=== PATIENT | male | born 1985 | race Two or more races ===

== ENCOUNTER 2024-08-29 20:56 | Emergency (ER) | payer MEDICAID, SELFPAY ==
[2024-08-29 20:57] VITALS: BMI 30.5
--- NOTE | 2024-08-29 21:00 | EKG_ITS ---
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
[2024-08-29 21:11] VITALS: BP 149/96; PULSE 103; RESP 18; TEMP 36.8; O2SAT 96
--- NOTE | 2024-08-29 21:32 | XR_ITS ---
Examination: PA chest single view Technique: Upright PA chest single view Exam date and time: August 29, 2024 1009 hrs. Comparison September 27, 2023 Indications: Chest pain SOB today Findings: No significant cardiac enlargement Suspicious for early pneumonia left base, the appearance should be clinically correlated Intact osseous structures Impression: Suspicious for early pneumonia left base
[2024-08-29] MEDS: DIAZEPAM 5 MG TABLET 10 MG PO (22:33)
[2024-08-29 22:38] LABS: Basophils % (Auto) 0 % (0-2.5); Eosinophils % (Auto) 0 % (0-10); Hematocrit 43.7 % (41.0-53.0); Hemoglobin 14.8 g/dL (13.5-16.0); Immature Granulocytes % (Auto) 0 % (0-0); Immature Granulocytes Auto 0.04 Thou/mm3 (0.00-0.00); Lymphocytes # (Auto) 1.5 Thou/mm3 (1.0-4.8); Lymphocytes % (Auto) 11 % (10-50); Mean Corpuscular HGB Conc 33.9 g/dl (31.0-37.0); Mean Corpuscular Volume 80 fL (80-100); Monocytes # (Auto) 0.8 Thou/mm3 (0.0-0.8); Monocytes % (Auto) 6 % (0-12); Neutrophils # (Auto) 11.3 Thou/mm3 (1.8-7.7); Neutrophils % (Auto) 83 % (37-80); Nucleated Red Blood Cell % 0 /100 WBC (0); Platelet Count 230 Thou/mm3 (140-440); RDW Standard Deviation 38.6 fL (35.1-43.9); Red Blood Count 5.48 Miln/mm3 (4.50-5.90); White Blood Count 13.7 Thou/mm3 (3.8-10.6)
[2024-08-29 23:00] LABS: Alanine Aminotransferase 77 U/L (10-49); Albumin, Serum 4.4 gm/dL (3.5-5.0); Anion Gap 9 (7-16); Aspartate Amino Transferase 35 U/L (0-34); BUN/Creatinine Ratio 12 Ratio (12-20); Blood Urea Nitrogen 12 mg/dL (9-23); Calcium 9.2 mg/dL (8.3-10.6); Calcium (Corrected) 9.2 mg/dL (8.5-10.1); Carbon Dioxide 26.1 mMol/L (20.0-31.0); Chloride 105 mMol/L (98-107); Estimated Creatinine Clearance 106.3 mL/min (>60); Glucose 116 mg/dL (74-106); Osmolality,Calculated 280 (275-295); Potassium 3.2 mMol/L (3.4-5.1); Sodium 140 mMol/L (136-145); Total Protein 7.1 gm/dL (5.7-8.2); Troponin I < 0.020 ng/mL (0.0-0.045); eGFR > 60 See Note
[2024-08-29 23:01] LABS: Albumin/Globulin Ratio 1.6 (1.2-2.2); Alkaline Phosphatase 106 U/L (46-116); Globulin 2.7 gm/dL (2.3-3.5)
[2024-08-30] MEDS: POTASSIUM CHLORIDE 20 mEq TABCR 40 MEQ PO (00:09)
[2024-08-30 00:45] LABS: D-Dimer < 250 ng/mL (<600)
[2024-08-30 00:54] LABS: Troponin I < 0.020 ng/mL (0.0-0.045)
[2024-08-30 01:18] VITALS: BP 116/76; PULSE 82; RESP 16; TEMP 36.7; O2SAT 96
--- NOTE | 2024-08-30 04:01 | EDNOTE_ITS ---
ED Chest Pain RME/HPI General Chief Complaint: Chest Pain Stated Complaint: CHEST PAIN, BLURRY VISION, FEELS ANXIOUS Time Seen by Provider: 08/29/24 21:31 Arrival date/time: 08/29/24 20:56 38M with history of anxiety, drug use and HTN presents to ED with several days of cough and SOB. Limitations: no limitations Related Data Home Medications ?Medication ?Instructions ?Recorded ?Confirmed hydrochlorothiazide 50 mg tablet 50 mg PO QAM 03/28/23 10/01/23 Previous Rx's ?Medication ?Instructions ?Recorded albuterol sulfate 90 mcg/actuation 1 inh inhalation QI D PRN shortness 10/01/23 breath activated powder inhaler of breath or wheezing #1 ea losartan 25 mg tablet 25 mg PO QDAY 30 days #30 ta bs 10/01/23 vitamin B complex-vitamin C-folic 1 tab PO QDAY 30 day s #30 tabs 10/01/23 acid 0.8 mg tablet (Nephro-Donato) amoxicillin 875 mg tablet 875 mg PO TID 5 days #15 tab s 08/30/24 azithromycin 250 mg tablet See Rx Instructions PO .COM PLEX #6 08/30/24 tabs Allergies Allergy/AdvReac Type Severity Reaction Status Date / Time No Known Allergies Allergy Verified 03/28/23 10:44 Review of Systems Review of Systems Systems Reviewed: All systems reviewed, normal except as documented Constitutional Constitutional: Reports system reviewed and no additional complaints, except as documented, Denies fever(s) and Denies headache(s) ENT Ears, Nose, Mouth, and Throat: Denies disequilibrium and Denies headache(s) Cardiovascular Cardiovascular: Reports system reviewed and no additional complaints, except as documented, Denies chest pain and Reports dyspnea Respiratory Respiratory: Reports system reviewed and no additional complaints, except as documented, Reports as per HPI, Reports cough and Reports dyspnea Gastrointestinal Gastrointestinal: Reports system reviewed and no additional complaints, except as documented, Denies abdominal pain, Denies nausea and Denies vomiting Neurologic Neurologic: Reports system reviewed and no additional complaints, except as documented, Denies confusion, Denies disequilibrium and Denies headache(s) Psychiatric Psychiatric: Reports as per HPI, Reports anxiety and Denies confusion Past Medical History Past Medical History NEUROLOGIC: Negative Seizures CARDIAC: Positive Cardiac Disorders and Hypertension; Negative Congestive Heart Failure RESPIRATORY: Negative Chronic Obstructive Pulmonary Disease (COPD) or Asthma GENITOURINARY: Negative Renal Disease ENDOCRINE: Negative Diabetes Mellitus Type 1 or Diabetes Mellitus Type 2 HEMATOLOGIC: Negative Sickle Cell Disease OTHER HISTORY: Negative Blood Transfusions or Anesthesia Reactions Social History SMOKING STATUS: Never smoker SUBSTANCE USE: does not use ED Exam General Limitations: Present no limitations General appearance: Present alert, in no apparent distress and anxious Head Head exam: Present atraumatic Eye Eye exam: Present normal appearance, PERRL and EOMI ENT ENT exam: Present normal exam, normal oropharynx and mucous membranes moist Neck Neck exam: Present normal inspection, full ROM and trachea midline Chest Chest inspection: Present normal inspection and symmetric chest wall rise Respiratory Respiratory exam: Present normal lung sounds bilaterally Cardiovascular Cardiovascular exam: Present regular rate, normal rhythm and normal heart sounds Abdominal Exam Abdominal exam: Present soft and normal bowel sounds Extremities Exam Extremities exam: Present normal inspection and full ROM Back Exam Back exam: Present normal inspection and full ROM Neurological Exam Neurological exam: Present alert, oriented X3 and CN II-XII intact Psychiatric Psychiatric exam: Present normal affect and normal mood Skin Skin exam: Present warm, dry, intact and normal color Course Quality Measures none Orders Category Date Time Status EKG (ED ONLY) *Do not use* NOW Care 08/29/24 21:01 Completed EKG (ED Only) Stat Exams 08/29/24 21:00 Draft XR chest 1V portable Stat Exams 08/29/24 21:32 Completed CBC Stat Lab 08/29/24 22:26 Completed Comprehensive Metabolic Panel Stat Lab 08/29/24 22:26 Completed D-Dimer Stat Lab 08/29/24 23:58 Completed Troponin I Stat Lab 08/29/24 22:26 Completed Troponin I Stat Lab 08/29/24 23:58 Completed Diazepam [Valium] Med 08/29/24 21:32 Discontinued 10 mg PO X1 ONE Potassium Chloride [K-Dur] Med 08/29/24 23:58 Discontinued 40 meq PO X1 ONE Vital Signs Vital signs: Vital Signs Temperature 98.3 F 08/29/24 21:11 Pulse Rate 103 H 08/29/24 21:11 Respiratory Rate 18 08/29/24 21:11 Blood Pressure 149/96 H 08/29/24 21:11 Pulse Oximetry (%) 96 08/29/24 21:11 Oxygen Delivery Method Room Air 08/29/24 21:11 O2 at 96% on RA and WNLs Chest Pain MDM Narrative MDM Narrative:: 38M with history of anxiety, drug use and HTN presents to ED with several days of cough and SOB. Physical exam reveals clear lungs. RRR. Normal WOB. Patient is afebrile, alert, but anxious. EKG shows sinus tach of 109. Mild leukocytosis. K mildly low, repleted. Trop 2x normal. D-dimer normal. CXR shows some PNA. Patient data External records reviewed:: [facility] previous records Clinical information provided by:: patient Social determinants that could affect healthcare access:: mental health Patient has the following chronic illnesses:: anxiety, drug use and HTN How is presenting disease/condition affected by chronic disease/condition?: exacerbated by Evaluation data The following diagnostics were reviewed and interpreted by me:: lab results, radiology exam(s) and EKG tracing(s) Lab and/or radiology exams considered but not ordered:: ordered Interpretation Summary: above Medications / Prescriptions Medications or Prescriptions considered but not ordered:: ordered Medication administrations:: Medication Administration History Discontinued Medications Diazepam (Diazepam 5 Mg Tablet) 10 mg PO X1 ONE Stop: 08/29/24 21:33 Last Admin: 08/29/24 22:33 Dose: 10 mg Documented By: Potassium Chloride (Potassium Chloride 20 Meq Tabcr) 40 meq PO X1 ONE Stop: 08/29/24 23:59 Last Admin: 08/30/24 00:09 Dose: 40 meq Documented By: MS valeriano Consultations Consultation(s) initiated? (list below): No Diagnosis Chest Pain Differential Diagnosis: fracture of rib, pneumothorax, stable angina, unstable angina pectoris, atypical chest pain, st elevation myocardial infarction, costochondritis, chest pain, biliary colic and other (CAP) Most likely diagnosis given after review of the tests above:: CAP Admission Indicated Admission indicated?: not indicated Admission Request Was there a request for admission?: No Disposition Plan Disposition Plan: Discharge Discharge Attestation Discharge Attestation: The patient and all family members were given an opportunity to ask questions and understood the discharge instructions. Discharge instructions specifically effects, indications for sooner follow up or return to the emergency department, and the expected course of current diagnosis. Patient condition: Stable Discharge Plan Plan Patient Disposition: HOME (Self Care) Disposition Comment: Stable Prescriptions/Referrals Prescriptions/Med Rec: New amoxicillin 875 mg tablet 875 mg PO TID 5 Days Qty: 15 0RF azithromycin 250 mg tablet See Rx Instructions .ROUTE .COMPLEX Qty: 6 0RF Rx Instructions: For 250 mg dose pack: take 500 mg today (day 1), then 250 mg for 4 days (days 2-5) No Action hydrochlorothiazide 50 mg Tablet 50 mg PO QAM losartan 25 mg Tablet 25 mg PO QDAY 30 Days Qty: 30 6RF Nephro-Donato 0.8 mg Tablet 1 tab PO QDAY 30 Days Qty: 30 6RF albuterol sulfate 90 mcg/actuation aerosol powdr breath activated 1 inh inhalation QID PRN (Reason: shortness of breath or wheezing) Qty: 1 3RF Referrals: No Primary/Family,Physician [Primary Care Provider] - In 1 week Problem List Clinical Impression: CAP (community acquired pneumonia) Patient/Caregiver Discharge Instructions Education Materials: ED Pneumonia (Adult) Additional Instructions: Please follow-up with PCP within 24-48 hours and return immediately if symptoms worsen. Print Language: Kuwaiti Stand Alone Forms: Patient Portal Info Letter PA/[employer] Supervising Physician MANNY/MAMADOU Supervising Physician: Dr. Sloan
== END 2024-08-30 01:07 | disposition home or self-care (01) ==
PROVIDERS: Physician Assistant; Emergency Provider Emergency Medicine
DX: J18.9 Pneumonia, unspecified organism (principal); I10 Essential (primary) hypertension; F41.9 Anxiety disorder, unspecified
CPT/HCPCS: 36415; 71045; 80053; 84484; 85025; 85379; 93005; 99283; A9270

== ENCOUNTER 2025-03-07 13:15 | Emergency (ER) | payer MEDICAID, SELFPAY ==
[2025-03-07 13:16] VITALS: BMI 26.6
--- NOTE | 2025-03-07 13:24 | PD.EDANIML ---
ED Animal Bite RME/HPI General Chief Complaint: Animal Bite Stated Complaint: MY FRIEND'S DOG BIT ME Time Seen by Provider: 03/07/25 13:22 Arrival date/time: 03/07/25 13:15 RME / HPI RME / HPI narrative: DR. JONES MAIN ED EVALUATION: 39-year-old male with past medical history of hypertension, hyperlipidemia, and prediabetes presents to the Emergency Department for a dog bite to the right hand. Patient reports, my friend?s dog bit me; it was a Rottweiler . The incident occurred earlier today. He is unsure of his last tetanus vaccination. Denies numbness, tingling, or loss of function. Bleeding was controlled prior to arrival. No other injuries reported. Related Data Home Medications ?Medication ?Instructions ?Recorded ?Confirmed hydrochlorothiazide 50 mg tablet 50 mg PO QAM 03/28/23 10/01/23 Previous Rx's ?Medication ?Instructions ?Recorded albuterol sulfate 90 mcg/actuation 1 inh inhalation QID PRN shortness 10/01/23 breath activated powder inhaler of breath or wheezing #1 ea losartan 25 mg tablet 25 mg PO QDAY 30 days #30 tabs 10/01/23 vitamin B complex-vitamin C-folic 1 tab PO QDAY 30 days #30 tabs 10/01/23 acid 0.8 mg tablet (Nephro-Donato) azithromycin 250 mg tablet See Rx Instructions PO .COMPLEX #6 08/30/24 tabs amoxicillin 500 mg-potassium 1 tab PO BID #10 tabs 03/07/25 clavulanate 125 mg tablet (Augmentin) Allergies Allergy/AdvReac Type Severity Reaction Status Date / Time No Known Allergies Allergy Verified 03/07/25 13:19 Review of Systems Review of Systems Systems Reviewed: All systems reviewed, normal except as documented Past Medical History Past Medical History CARDIAC: Positive Cardiac Disorders and Hypertension Social History SMOKING STATUS: Never smoker SUBSTANCE USE: does not use ALCOHOL: Never ED Exam Narrative Physical exam: GENERAL APPEARANCE: alert and oriented x 4, well-developed, well-nourished, no acute distress VITALS: All vitals were reviewed and the pulse ox is 96% on room air, which is normal according to my interpretation. HEENT: Normocephalic, atraumatic; pupils equal, round, reactive to light; EOMI; mucous membranes pink, moist; oropharynx clear NECK: Supple LUNGS: CTABL; no wheezes, no rales, no rhonchi HEART: Regular rate, regular rhythm; normal S1, S2; no murmurs ABDOMEN: non distended; normal BS; soft, no tenderness, no guarding, no rebound; no masses, no organomegaly, no hernia BACK: no CVA tenderness EXTREMITIES: Right hand with approximately 2 cm laceration to the palmar aspect; no active bleeding, no foreign body visualized, full range of motion, sensation intact. NEUROLOGIC: awake; alert and oriented x4; cranial nerves II-XII grossly intact; no focal sensory or motor deficits PSYCHIATRIC: appropriate mood and affect SKIN: Warm, dry, normal color; localized wound as described, no rash Course Quality Measures none Orders Category Date Time Status Irrigate Wound NOW Care 03/07/25 13:31 Completed Set Up Suture Tray NOW Care 03/07/25 13:31 Completed XR hand comp RT min 3V Stat Exams 03/07/25 13:29 Completed Amoxicillin/Pot Clav [Augmentin] Med 03/07/25 13:29 Discontinued 500 mg PO X1 ONE HYDROcodone*/APAP 5/325 [[place] 5/325] Med 03/07/25 13:29 Discontinued 1 tab PO X1 ONE Ketorolac Inj [Toradol Inj] Med 03/07/25 13:29 Discontinued 30 mg IM X1 ONE Lidocaine 1% 20 ml [Xylocaine 1% 20 ML] Med 03/07/25 13:29 Discontinued 10 ml INFL X1 ONE TET,DIP/PERT AC (Adult)-Tdap [Boostrix Adult (Tdap) Med 03/07/25 13:29 Discontinued Vacc] 0.5 ml IMI .ONCE ONE Vital Signs Vital signs: Vital Signs Temperature 98.7 F 03/07/25 13:29 Pulse Rate 102 H 03/07/25 13:29 Respiratory Rate 16 03/07/25 13:29 Blood Pressure 155/94 H 03/07/25 13:29 Pulse Oximetry (%) 96 03/07/25 13:29 Oxygen Delivery Method Room Air 03/07/25 13:29 Animal Bite MDM Narrative MDM Narrative:: I, Christine Duvall, am scribing for and in the presence of Dr. Jones. x1 staple placed on the wound to the right palm. No complications, patient tolerated the procedure well. Patient data External records reviewed:: [facility] previous records Clinical information provided by:: patient Social determinants that could affect healthcare access:: none Patient has the following chronic illnesses:: hypertension, hyperlipidemia, and prediabetes How is presenting disease/condition affected by chronic disease/condition?: uneffected by Evaluation data The following diagnostics were reviewed and interpreted by me:: radiology exam(s) Lab and/or radiology exams considered but not ordered:: none Interpretation Summary: Procedure(s): XR hand comp RT min 3V Accession Number(s): [id number] cc: Bradford Parekh MD; NO PRIMARY/FAMILY,PHYSICIAN; Gianna Jones MD~ Examination: Hand, right INDICATION: Trauma Technique: Hand AP, oblique, lateral 3 views Date and time of exam: 03/07/2025, 1:29 p.m. FINDINGS: No evidence of fracture or dislocation. No foreign body. IMPRESSION: Negative exam Dictated By: Bradford Parekh MD Medications / Prescriptions Medications or Prescriptions considered but not ordered:: none Medication administrations:: Medication Administration History Discontinued Medications Hydrocodone Bitart/Acetaminophen (Hydrocodone/Apap 5/325 Tablet) 1 tab PO X1 ONE Stop: 03/07/25 13:30 Last Admin: 03/07/25 13:46 Dose: 1 tab Documented By: SILVIA Amoxicillin/Clavulanate Potassium (Amoxicillin/Pot Clav 500 Mg Tablet) 500 mg PO X1 ONE Stop: 03/07/25 13:30 Last Admin: 03/07/25 13:47 Dose: 500 mg Documented By: SILVIA Diphtheria/Tetanus/Acell Pertussis (Diphth,Pertuss(Acell),Tet Vac 0.5 Ml Syr- Adult) 0.5 ml IMi .ONCE ONE Stop: 03/07/25 13:30 Last Admin: 03/07/25 13:48 Dose: 0.5 ml Documented By: SILVIA Ketorolac Tromethamine (Ketorolac Inj 30 Mg/Ml Vial) 30 mg IM X1 ONE Stop: 03/07/25 13:30 Last Admin: 03/07/25 13:47 Dose: 30 mg Documented By: SILVIA Lidocaine HCl (Lidocaine Hcl 1% 20 Ml Vial) 10 ml INFL X1 ONE Stop: 03/07/25 13:30 Last Admin: 03/07/25 14:43 Dose: Not Given Documented By: OA Non-Admin Reason: Discontinued see above Consultations Consultation(s) initiated? (list below): No Diagnosis Differential diagnosis animal bite: other (Dog bite laceration, soft tissue infection, and cellulitis.) Most likely diagnosis given after review of the tests above:: Dog bite of right hand Stapled skin wound Admission Indicated Admission indicated?: not indicated Admission Request Was there a request for admission?: No Disposition Plan Disposition Plan: Discharge Discharge Attestation Discharge Attestation: The patient and all family members were given an opportunity to ask questions and understood the discharge instructions. Discharge instructions specifically effects, indications for sooner follow up or return to the emergency department, and the expected course of current diagnosis. Patient condition: Stable Discharge Plan Plan Patient Disposition: HOME (Self Care) Prescriptions/Referrals Prescriptions/Med Rec: New amoxicillin-pot clavulanate [Augmentin] 500-125 mg tablet 1 tab PO BID Qty: 10 0RF No Action azithromycin 250 mg tablet See Rx Instructions .ROUTE .COMPLEX Qty: 6 0RF Rx Instructions: For 250 mg dose pack: take 500 mg today (day 1), then 250 mg for 4 days (days 2-5) hydrochlorothiazide 50 mg Tablet 50 mg PO QAM losartan 25 mg Tablet 25 mg PO QDAY 30 Days Qty: 30 6RF Nephro-Donato 0.8 mg Tablet 1 tab PO QDAY 30 Days Qty: 30 6RF albuterol sulfate 90 mcg/actuation aerosol powdr breath activated 1 inh inhalation QID PRN (Reason: shortness of breath or wheezing) Qty: 1 3RF Referrals: No Primary/Family,Physician [Primary Care Provider] - In 1 week Problem List Clinical Impression: Dog bite of right hand, Stapled skin wound Patient/Caregiver Discharge Instructions Education Materials: ED Dog Bite Additional Instructions: You have a cut on your hand due to a dog bite. Because wounds from dog bites can get infected easily, we have loosely closed the skin, allowing for drainage if any infection occurs. We have also sent a prescription for antibiotics to your pharmacy which you should take as directed. Follow up with your doctor in 1-2 days for a wound recheck. Keep the wound covered and clean. Print Language: Faroese Stand Alone Forms: Ana Award Info., Patient Portal Info Letter
[2025-03-07 13:29] VITALS: BP 155/94; PULSE 102; RESP 16; TEMP 37.1; O2SAT 96
--- NOTE | 2025-03-07 13:29 | XR_ITS ---
Examination: Hand, right INDICATION: Trauma Technique: Hand AP, oblique, lateral 3 views Date and time of exam: 03/07/2025, 1:29 p.m. FINDINGS: No evidence of fracture or dislocation. No foreign body. IMPRESSION: Negative exam
[2025-03-07 13:30] VITALS: BMI 29.5
[2025-03-07] MEDS: HYDROcodone/APAP 5/325 TABLET 1 TAB PO (13:46)
[2025-03-07] MEDS: AMOXICILLIN/POT CLAV 500 MG TABLET PO (13:47)
[2025-03-07] MEDS: KETOROLAC INJ 30 MG/ML VIAL IM (13:47)
[2025-03-07] MEDS: DIPHTH,PERTUSS(ACELL),TET VAC 0.5 ML SYR- ADULT IMi (13:48)
== END 2025-03-07 15:23 | disposition home or self-care (01) ==
PROVIDERS: Emergency Provider Emergency Medicine
DX: S61.451A Open bite of right hand, initial encounter (principal); E78.5 Hyperlipidemia, unspecified; I10 Essential (primary) hypertension; W54.0XXA Bitten by dog, initial encounter; Z23 Encounter for immunization
CPT/HCPCS: 12001; 73130; 90471; 90715; 96372; 99284; J1885; J3490; A9270